=== PATIENT | female | born 2005 | race Two or more races ===

== ENCOUNTER → 2025-03-27 | Outpatient (CLI) | payer OTHER ==
[2025-03-27 15:37] LABS: PLATELET COUNT, AUTOMATED 248 10^3/uL (150-450)
[2025-03-27 16:14] LABS: Trichomonas vaginalis (AMP) NOT DETECTED (NEGATIVE)
[2025-03-27 16:32] LABS: HIV 1&2 SCREEN NEGATIVE (NEGATIVE)
[2025-03-27 16:38] LABS: GC DNA AMPLIFICATION NEGATIVE (NEGATIVE)
[2025-03-27 16:40] LABS: HEPATITIS C VIRUS ABY INDEX < 0.02 INDEX (<0.8)
== END ==
LOC: M PLALAB 13:26
PROVIDERS: ATTEND Obstetrics & Gynecology
DX: Z34.01 Encounter for supervision of normal first pregnancy, first trimester (principal); Z83.2 Family history of diseases of the blood and blood-forming organs and certain disorders involving the immune mechanism

== ENCOUNTER → 2025-04-30 | Outpatient (CLI) | payer OTHER ==
[2025-05-06 17:53] LABS: FACTOR V111 ACTIVITY, CLOTTING 170 % normal (50-180); FACTOR VIII APTT 24 sec (23-32); RISTOCETIN COFACTOR 112 % normal (42-200); VW FACTOR ANTIGEN 193 % (50-217)
== END ==
LOC: M PLALAB 08:19
PROVIDERS: ATTEND Advanced Practice Midwife
DX: Z36.89 Encounter for other specified antenatal screening (principal); Z83.2 Family history of diseases of the blood and blood-forming organs and certain disorders involving the immune mechanism

== ENCOUNTER → 2025-07-16 | Outpatient (CLI) | payer OTHER | LOC: M RAD 15:34 | PROVIDERS: ATTEND Nurse Practitioner Family | DX: Z34.02 Encounter for supervision of normal first pregnancy, second trimester (principal) ==

== ENCOUNTER → 2025-07-21 | Outpatient (CLI) | payer OTHER ==
[2025-07-21 18:16] LABS: PLATELET COUNT, AUTOMATED 264 10^3/uL (150-450)
[2025-07-21 18:31] LABS: GLUCOSE CHALLENGE TEST 1 HOUR 60 MG/DL (LESS THAN 140)
[2025-07-21 19:06] LABS: HIV 1&2 SCREEN NEGATIVE (NEGATIVE)
[2025-07-21 19:14] LABS: HEPATITIS C VIRUS ABY INDEX < 0.02 INDEX (<0.8)
[2025-07-21 20:16] LABS: GC DNA AMPLIFICATION NEGATIVE (NEGATIVE)
[2025-07-21 22:18] LABS: Trichomonas vaginalis (AMP) NOT DETECTED (NEGATIVE)
== END ==
LOC: M PLALAB 13:55
PROVIDERS: ATTEND Obstetrics & Gynecology
DX: Z34.80 Encounter for supervision of other normal pregnancy, unspecified trimester (principal)